=== PATIENT | male | born 1935 | race Caucasian/White ===

== ENCOUNTER 2022-03-17 15:24 | Emergency (ER) | payer OTHER ==
[~2022-03-17] VITALS: Ht 172.7 cm; Wt 75.7 kg
--- NOTE | 2022-03-17 16:14 | NUR ---
OK TO GIVE MUCOM[facility] 20% NEBULIZER PER DR. VALDIVIA'S ORDER; RT MADE AWARE.
[2022-03-17] MEDS ORDERED: ACETYLCYSTEINE 20% SOLN 800 MG/4 ML VIAL ONE (16:17)
[2022-03-17] MEDS ORDERED: ACETYLCYSTEINE 20% SOLN 800 MG/4 ML VIAL NEB SCH (16:30)
[2022-03-17] MEDS ORDERED: ONDANSETRON HCL/PF 4 MG/2 ML VIAL ONE (16:50)
[2022-03-17] MEDS ORDERED: ONDANSETRON HCL/PF 4 MG/2 ML VIAL IV ONE (17:00)
[2022-03-17 17:03] LABS: BASOPHILS % (AUTO) 0.3 % (0.0-2.0); EOSINOPHILS % (AUTO) 2.2 % (0.0-6.0); HEMATOCRIT 40 % (39-51); HEMOGLOBIN 13.1 g/dL (13.5-17.5); LYMPHOCYTES # (AUTO) 2.5 K/uL (0.8-4.8); LYMPHOCYTES % (AUTO) 23.1 % (20.0-44.0); MEAN CORPUSCULAR HGB CONC 33 g/dl (31.0-36.0); MEAN CORPUSCULAR VOLUME 99 fL (80-96); MONOCYTES # (AUTO) 0.9 K/uL (0.1-1.30); MONOCYTES % (AUTO) 8.1 % (2.0-12.0); NEUTROPHILS # (AUTO) 7.2 K/uL (1.8-8.9); NEUTROPHILS % (AUTO) 66.3 % (43.0-81.0); PLATELET COUNT (AUTO) 144 K/uL (150-450); RED BLOOD CELL COUNT(AUTO) 4.01 MIL/uL (4.5-6.0); WHITE BLOOD COUNT (AUTO) 10.9 K/uL (4.3-11.0)
[2022-03-17 17:33] LABS: CALCIUM, SERUM 8.9 mg/dL (8.5-10.1); CARBON DIOXIDE 22 mmol/L (21-32); CHLORIDE 113 mmol/L (98-107); CREATININE 1.3 mg/dL (0.6-1.3); GLUCOSE 122 mg/dL (74-106); POTASSIUM 3.2 mmol/L (3.5-5.1); SODIUM SERUM 143 mmol/L (136-145); UREA NITROGEN, BLOOD 25 mg/dL (7-18)
--- NOTE | 2022-03-17 18:26 | NUR ---
CALLED [facility] FOR PEER TO PEER. AWAITING PHYSICIAN CALL BACK.
--- NOTE | 2022-03-17 20:05 | NUR ---
asia sanchez on phone call with karli sanchez
[2022-03-17] MEDS ORDERED: POTASSIUM CHLORIDE 20 MEQ TAB.PRT.SR PO ONE ×2 (21:30→22:59)
--- NOTE | 2022-03-17 22:05 | NUR ---
TRANSFER INFO: PT GOING TO [facility] ED. UNDER THE CARE OF DR. BOLES. ELIGIBILITY COUNSELOR ETA IS AT [id number] . CALL [phone] FOR REPORT.
--- NOTE | 2022-03-17 22:05 | NUR ---
Joseph cosby in [facility] - 03/17/22 at 2205 by TIMO TRANSFER INFO";
--- NOTE | 2022-03-17 22:53 | NUR ---
report given to charge nurse at [facility]
--- NOTE | 2022-03-17 22:59 | NUR ---
report given to ems at bedside
[2022-03-18 01:15] VITALS: BP 134/70
== END 2022-03-17 23:00 | disposition short-term general hospital (02) ==
LOC: ER 15:26
DX: R05.9 Cough, unspecified (principal); R06.02 Shortness of breath; E87.6 Hypokalemia; G20 Parkinson's disease; I10 Essential (primary) hypertension; Z85.46 Personal history of malignant neoplasm of prostate; I25.10 Atherosclerotic heart disease of native coronary artery without angina pectoris; Z86.16 Personal history of COVID-19
CPT/HCPCS: 99285; 96374; 71045; 87426; 93005; 85025; 80048; 36415; 84484; 83880; 94640; J2405; C9803